=== PATIENT | male | born 1965 | race Caucasian/White ===

== ENCOUNTER 2017-03-04 09:39 | Emergency (ER) | payer OTHER ==
[~2017-03-04] VITALS: Ht 177.8 cm; Wt 93.2 kg
[~2017-03-04 09:39] MED LIST: ASPI-973 PO; LOVA10TA PO; NAPR220C11 PO
[2017-03-04 09:50] VITALS: BP 170/106; PULSE 77; RESP 18; O2SAT 100
--- NOTE | 2017-03-04 09:58 | ED.REPORT ---
HPI-General Illness Date of Service Mar 04, 2017 ED Provider: Lydia Christy MD A 51 year old male presents to the ED complaining of intermittent vomiting onset 1 month ago, vomiting usually occurring in the mornings. Today he woke up , felt dizzy and lightheaded, feeling like he was going to faint. He has not felt like he was going to faint with previous vomit episodes. After dizziness and lightheadedness onset, he ate something and then vomited, the vomit having no color. He reports epigastric chest pain that is only present when he vomits , with the pain being relieved by vomiting. Pain is not described as burning. Associated symptoms include diaphoresis, nausea, and recent unintentional weight loss. Nursing Notes Stated Complaint: SOB/CHEST PAIN Chief Complaint: Chest Pain-Non Cardiac Nature Nursing Notes Reviewed: Yes Allergies: Coded Allergies: No Known Allergies (Unverified , 03/04/17) Scheduled Aspirin (Aspirin) 81 Mg Tablet 81 MG PO DAILY Ciprofloxacin (Cipro) 500 Mg Tablet 500 MG PO BID Lovastatin (Lovastatin) 10 Mg Tablet 10 MG PO HS Metronidazole (Flagyl) 500 Mg Tablet 500 MG PO TID Oxycodone HCl/Acetaminophen (Primlev 5-300 mg Tablet) 1 Each Tablet 0.5-1 EACH PO QID Scheduled PRN Naproxen Sodium (Aleve) 220 Mg Capsule 220 MG PO Q12H PRN PRN For Pain Ondansetron (Zofran) 4 Mg Tablet 4 MG PO Q4H PRN PRN For Nausea General Time Seen by MD: 09:54 Chief Complaint Vomiting Hx Obtained From: Patient, EMS Arrived By: Ambulance Onset Occurred: More than a week ago... (1 month ago) Symptom Duration: Intermittent Severity: Current: Moderate Severity: Maximum: Moderate Recent Healthcare: No recent doctor visit Similar Sx Previous: No Past Medical History Past Medical History Notes: Dr. Barry. Past Medical History no prior cardiac issues no pancreatic issues Baby Aspirin Reports: Hyperlipidemia, Denies: Hypertension Past Surgical History knee surgery Smoking History Never Smoker (no cigarettes) Social History Alcohol Use: 1-3 per day (daily) Drug Use: THC Ambulatory Status Independent Review of Systems Feelings of faintness. Full Review of Systems Constitutional: Reports: Recent wt loss Cardiovascular: Reports: Chest pain (epigastric pain, but no heart pain) GI: Reports: Nausea, Vomiting, Denies: Bloody/tarry stool, Diarrhea, Hematemesis Male: Denies Incontinence Skin: Reports Diaphoresis Neurologic: Reports: Dizziness, Lightheaded Complete sys rev & neg: except as marked. Physical Exam Vital Signs Vital Signs Date Time Temp Pulse Resp B/P Pulse Ox O2 Delivery O2 Flow Rate FiO2 03/04/17 14:49 36.8 79 18 134/68 98 Room Air 03/04/17 11:52 72 21 172/93 100 Room Air 03/04/17 10:43 75 20 165/108 100 Room Air 03/04/17 09:50 37.1 77 18 170/106 100 Room Air Initial VS: Reviewed General/Constitutional: Awake, Alert Patient is diaphoretic. Head / Eyes: Atraumatic, Normocephalic, PERRL, EOMI ENT: Atraumatic, Mucous membranes moist Respiratory / Chest: Atraumatic, Breath sounds NL, Breath sounds = bilat, No respiratory distress, No rales, No rhonchi, No wheezing Cardiovascular: Heart rate NL, Heart sounds NL brief runs of bigeminy. Abdomen: No guarding, No rebound Tenderness/Guarding/Rebound: Positive: Tender LLQ... (Worsening pain in LUQ that is radiating down to LLQ), Tender LUQ... (worsening pain in LUQ that is radiating down to LLQ), Tender diffuse (Diffuse abdominal pain) Skin: Atraumatic, Color NL, Warm, Dry Neurologic: Oriented X3, Speech NL Interpretation & Diagnostics Lab Results Interpretation Result Diagram: 03/04/17 1000 03/04/17 1000 Test 03/04/17 10:00 White Blood Count 8.8th/mm3 (3.8-10.1) Red Blood Count 4.99mil/mm3 (4.40-5.80) Hemoglobin 15.8g/dL (13.8-17.2) Hematocrit 46.1% (41.0-50.0) Mean Corpuscular Volume 92.4fL (81-100) Mean Corpuscular Hemoglobin 31.7pg (27.0-35.0) Mean Corpuscular Hemoglobin Concent 34.3% (32.0-37.0) Red Cell Distribution Width 12.5% (12.3-15.4) Platelet Count 319bil/L (150-400) Neutrophils (%) (Auto) 64.9% (40-74) Lymphocytes (%) (Auto) 21.6% (14-46) Monocytes (%) (Auto) 9.1% (4-12) Eosinophils (%) (Auto) 3.6% (0-5) Basophils (%) (Auto) 0.7% (0-3) Sodium Level 136mEq/L (134-144) Potassium Level 4.0mEq/L (3.5-5.2) Chloride Level 101mEq/L (97-108) Carbon Dioxide Level 17mmol/L (18-29) Blood Urea Nitrogen 18mg/dL (6-24) Creatinine 0.62mg/dL (0.76-1.27) Estimat Glomerular Filtration Rate 144mL/min (>59) Glucose Level 125mg/dL (60-99) Calcium Level 9.8mg/dL (8.5-10.1) Magnesium Level 1.9mg/dL (1.6-2.6) Total Bilirubin 0.5mg/dL (0.0-1.2) Aspartate Amino Transf (AST/SGOT) 30U/L (0-50) Alanine Aminotransferase (ALT/SGPT) 33U/L (0-44) Alkaline Phosphatase 19U/L (25-150) Troponin T 0.010ug/L (0.0-0.011) Total Protein 7.5g/dL (6.4-8.4) Albumin 4.6g/dL (3.4-5.0) Lipase 22U/L (13-60) Hold Bedoya Top Tube Received (Received) ECG Interpretation ECG Interpretation: Rate is 68. Sinus rhythm. Ventricular premature complex. No ischemia. Time: 10:53 Interpreted by: ED physician X-Ray Chest Interpretation Chest Xray Interpretation: IMPRESSION: Probable right infrahilar scarring/atelectasis. No convincing pneumonia. No overt heart failure. Dictated by: Momo Awad M.D. on 03/04/2017 at 9:17 Approved by: Momo Awad M.D. on 03/04/2017 at 9:17 Interpretation / Wet Read by: Interpret - Radiologist CT Abd / Pelvis Interpretation IMPRESSION: 1. Diverticulosis. There is mild concentric thickening of colon of the descending and sigmoid colon, suggesting mild colitis. Differential diagnoses include diverticulitis, colitis, and inflammatory bowel disease. 2. Small hiatal hernia Dictated by: Lobito Carrasco M.D. on 03/04/2017 at 12:42 Approved by: Lobito Carrasco M.D. on 03/04/2017 at 13:00 Interpretation / Wet Read by: Interpret - Radiologist Re-Eval/Medical Decision Med Decision/Clinical Course Presents with abdominal pain and vomiting this been present for a month consistently every morning. He is having brief runs of a Belkis and with these episodes of bigeminy is more diaphoretic with an exacerbation of his abdominal pain. Unclear if it is the abdominal pain causing the cardiac dysrhythmia or vice versa. Exam is relatively unremarkable with the exception of a mildly inflamed colon. Most consistent with diverticulitis as an acute symptom causing his pain. Once pain and nausea were controlled his telemetry readings have remained in sinus rhythm throughout the remainder of his emergency room stay No evidence of sepsis. We will treat him for acute diverticulitis. refer back to PCP for additional workup of the morning nausea for the last month Source of Hx: Old records Time of Eval: 10:02 Re-Evaluation/Progress Note: Checked patient who is not hurting right now. Time of Eval: 14:11 Patient Status: Condition improved Re-Evaluation/Progress Note: Rechecked patient who is feeling much better. Explained test results, diagnosis, and plan for discharge. Patient understands and agrees with the plan. All questions addressed. Counseled Regarding: Diagnosis, Lab results, Need for follow-up, When/why to return to ED Discharge & Departure Primary Impression: Diverticulitis Additional Impression: Recurrent vomiting Disposition: Home Discharge Condition All VS Reviewed: Yes Condition: Improved Patient Instructions: Diverticulitis (ED) Your lab work and CT scan do not suggest severe disease at this point. CT scan does show some inflammation along your colon most, consistent with a developing diverticulitis. For that reason, I am going to have you start Flagyl 500 mg 3 times a day for the next 7 days, and Cipro 500 mg twice a day for the next 7 days. You can use half to one Percocet as needed for pain You can use 4 mg of Zofran every 8 hours as needed for nausea I am not sure that diverticulitis is a full explanation for the vomiting that you have been having daily for the last month. Please schedule an appointment with Dr. Barry next week to follow up on all of these issues and see if additional workup is necessary Thank you for your patients with me in the department today. It was nice to making. I hope you feel better soon. Referrals: Basilio Barry MD (PCP) Sergioibrogelio Attestation Portions of this note were transcribed by Jenaro Collins. I, Dr. Christy personally performed the history, physical exam and medical decision-making; I reviewed and confirmed the accuracy of the information in the transcribed note. Signed by: Kevin Collins, 03/04/2017, 1605. copies to: Basilio Barry MD, Shawna L MD Mar 04, 2017 09:58 Jenaro Collins Mar 04, 2017 10:03
[2017-03-04] MEDS ORDERED: Ondansetron 2 mg/mL 2 mL Inj ONE (10:04)
[2017-03-04] MEDS ORDERED: Ondansetron 2 mg/mL 2 mL Inj IVPUSH ONE (10:10)
[2017-03-04 10:19] LABS: BASOPHILS % (AUTO) 0.7 % (0-3); EOSINOPHILS % (AUTO) 3.6 % (0-5); MONOCYTES % (AUTO) 9.1 % (4-12); Mean Corpuscular Hemoglobin 31.7 pg (27.0-35.0); Mean Corpuscular Volume 92.4 fL (81-100); NEUTROPHILS % (AUTO) 64.9 % (40-74); Platelet Count 319 bil/L (150-400)
--- NOTE | 2017-03-04 10:19 | DRSVH ---
PROCEDURE: X-RAY CHEST ONE VIEW, PORTABLE ([id number]) INDICATIONS: CP TECHNIQUE: One view of the chest was acquired. COMPARISON: None. FINDINGS: Surgical changes and devices: None. Lungs and pleura: Slight increased attenuation is identified within the right infrahilar region, prob ably representing normal vascular structures or mild atelectasis. No convincing areas of consolidati on are present. No pleural effusion or definite pneumothorax is evident. Mediastinum: Mediastinal contours appear normal. Heart size is normal. Bones and chest wall: No suspicious bony lesions. Overlying soft tissues appear unremarkable. IMPRESSION: Probable right infrahilar scarring/atelectasis. No convincing pneumonia. No overt heart failure. Dictated by: Momo Awad M.D. on 03/04/2017 at 9:17 Approved by: Momo Awad M.D. on 03/04/2017 at 9:17
[2017-03-04 10:43] VITALS: BP 165/108; PULSE 75; RESP 20; O2SAT 100
[2017-03-04 10:58] LABS: TROPONIN T 0.01 ug/L (0.0-0.011)
[2017-03-04] MEDS ORDERED: 0.9% Sodium Chloride 1,000 ML IV ONE (11:07)
[2017-03-04 11:09] LABS: Magnesium 1.9 mg/dL (1.6-2.6)
[2017-03-04] MEDS: HYDROmorphone 0.5 mg/0.5 mL iSecure Syringe IVPUSH PRN ×3 (11:21→13:45)
[2017-03-04] MEDS: Ondansetron 2 mg/mL 2 mL Inj IVPUSH PRN ×2 (11:21→13:45)
[2017-03-04 11:52] VITALS: BP 172/93; PULSE 72; RESP 21; O2SAT 100
--- NOTE | 2017-03-04 13:01 | DRSVH ---
PROCEDURE: CT ABDOMEN AND PELVIS WITH CONTRAST ([id number]) INDICATIONS: abdominal pain, worse Left upper quadrant TECHNIQUE: After the administration of intravenous contrast, 5 mm thick sections acquired from the diaphragm to the symphysis. 5 mm coronal and sagittal reformats were acquired. For radiation dose reduction, the following was used: automated exposure control, adjustment of mA and/or kV according to patient siz e. COMPARISON: None. FINDINGS: Image quality: Excellent. ABDOMEN: Lung bases: Lung bases are clear. Heart size is normal. There is a small hiatal hernia. Solid organs: Mild hepatic fatty infiltration. Liver and spleen are normal in size and enhancement. Gallbladder is normal. Biliary system is non dilated. Pancreas enhances normally. No adrenal nodu les. Kidneys demonstrate normal size and enhancement, without hydronephrosis. Peritoneum and bowel: Bowel loops demonstrate normal wall thickness and caliber. There are scattere d colonic diverticula. There is mild concentric colonic wall thickening of the sigmoid colon. Normal appendix. No free fluid or air. Nodes and vessels: No retroperitoneal or mesenteric adenopathy by size criteria. Aorta and inferior vena cava are normal in size. Miscellaneous: No ventral hernias. PELVIS: Genitourinary: Bladder wall thickness is normal. Miscellaneous: No inguinal hernias or adenopathy. Bones: No suspicious bony lesions. No vertebral body compression fractures. IMPRESSION: 1. Diverticulosis. There is mild concentric thickening of colon of the descending and sigmoid colon, suggesting mild colitis. Differential diagnoses include diverticulitis, colitis, and inflammatory bow el disease. 2. Small hiatal hernia Dictated by: Lobito Carrasco M.D. on 03/04/2017 at 12:42 Approved by: Lobito Carrasco M.D. on 03/04/2017 at 13:00
[2017-03-04] MEDS ORDERED: [UNRECOGNIZED DRUG - CODE] PO (14:25)
[2017-03-04] MEDS ORDERED: ONDA4TAB6 PO (14:25)
[2017-03-04] MEDS ORDERED: METR500T PO (14:25)
[2017-03-04] MEDS ORDERED: CIPR-231 PO (14:25)
[2017-03-04 14:49] VITALS: BP 134/68; PULSE 79; RESP 18; O2SAT 98
== END 2017-03-04 14:50 | disposition home or self-care (01) ==
LOC: SED 09:39
DX: K57.92 Diverticulitis of intestine, part unspecified, without perforation or abscess without bleeding (principal); R11.10 Vomiting, unspecified; E78.5 Hyperlipidemia, unspecified; Z79.82 Long term (current) use of aspirin
CPT/HCPCS: 36415; 71010; 74177; 80053; 83690; 83735; 84484; 85025; 93005; 96361; 96374; 96375; 96376; 99285; J1170; J2405; J7030; Q9967

== ENCOUNTER 2017-05-19 12:05 | Day surgery (SDC) | payer OTHER ==
[~2017-05-19] VITALS: Ht 180.3 cm; Wt 90.7 kg
[~2017-05-19 12:05] MED LIST changes: +0.9% Sodium Chloride 1,000 ML IV PRN; +CIPR-231 PO; +METR500T PO; +ONDA4TAB6 PO; +Sodium Chloride LOK Flush 10 mL Syringe IV PRN; +[UNRECOGNIZED DRUG - CODE] PO; +fentaNYL-PF 50 mCg/mL 2 mL Inj IVPUSH PRN
[2017-05-19] MEDS ORDERED: Propofol 10,000 mCg/mL 20 mL Inj ONE (12:06)
[2017-05-19 12:40] VITALS: BP 123/84; PULSE 70; RESP 16; O2SAT 97
[2017-05-19 13:59] VITALS: BP 120/70; PULSE 65; RESP 16; O2SAT 97
[2017-05-19 14:08] VITALS: BP 133/74; PULSE 72; O2SAT 98
[2017-05-19 14:18] VITALS: BP 122/79; PULSE 63; O2SAT 98
[2017-05-19] MEDS ORDERED: Lactated Ringer's 1,000 ML IV SCH (14:21)
[2017-05-19] MEDS ORDERED: Ondansetron 2 mg/mL 2 mL Inj IVPUSH PRN (14:25)
[2017-05-19] MEDS ORDERED: MetoCLOpramide 5 mg/mL 2 mL Inj IVPUSH PRN (14:25)
--- NOTE | 2017-05-19 14:25 | PCM.HPANE ---
Patient Data Date of Service: May 19, 2017 (3930) Surgeon Admitting Provider: Attending Provider:Mario Veloz MD Primary Care Physician:Basilio Barry MD Other Provider: Reason for Visit Altered Bowel Habits/Nausea & Vomiting R19.4-R11.2 Ht/WT & BMI Height (Feet): 5 Height (Inches): 11 Weight (Kilograms): 90.72 Body Mass Index 28.00 Allergies Coded Allergies: No Known Allergies (Unverified , 03/04/17) Past Anesthesia History Anesthesia History: Denies:: Abnormal Airway, Anesthesia Reactions, Difficult Intubation, Fam Anesthesia Reaction, Fam Malignant Hypertherm, Malignant Hyperthermia Diabetes History Hx Diabetes?: No MRSA MRSA: No Medications Blood Thinner: Aspirin Active Scripts Ondansetron (Zofran)4 Mg Tablet4 Mg PO Q4H PRN For Nausea #14 TABLET Prov:Lydia Christy MD 03/04/17 Oxycodone HCl/Acetaminophen (Primlev 5-300 mg Tablet)1 Each Tablet0.5-1 Each PO QID acute pain #14 TABLET Prov:Lydia Christy MD 03/04/17 Reported Medications Lovastatin 10 Mg [id number] Mg PO HS #30 TABLET Ref 0 08/24/16 Aspirin 81 Mg [id number] Mg PO DAILY Ref 0 08/24/16 Naproxen Sodium (Aleve)220 Mg [id number] Mg PO Q12H PRN For Pain 08/24/16 Discontinued Scripts Ciprofloxacin (Cipro)500 Mg [id number] Mg PO BID #14 TABLET Ref 0 Prov:Lydia Christy MD 03/04/17 Metronidazole (Flagyl)500 Mg [id number] Mg PO TID #21 TABLET Prov:Lydia Christy MD 03/04/17 History History of ENT Problems?: No HEENT History: Denies:: Abnormal Airway Cataracts Difficult Intubation Dysphagia Glaucoma Hearing Problem Sinus Problem TMJ Denture Type: None Teeth Condition: Within Normal Limits Hx of Heart Problems?: No Cardiovascular History: Positive for:: Hypertension Denies:: AICD Abdominal Aortic Aneurism Atrial Fibrillation Cardiac Surgery Chest Pain Congestive Heart Failure Coronary Artery Disease Edema Heart Murmur Irregular Heartbeat Pacemaker Peripheral Vascular Rheumatic Fever Thrombophlebitis Valvular Heart Disease Hx of Respiratory Problem?: No Respiratory History: Denies:: Asthma COPD Chest Surgery Cough Dyspnea Emphysema Hemoptysis Oxygen Administration Pneumonia Pulmonary Embolism Tuberculosis Use of C-PAP Machine Use of Inhalers / NEBS Hx Neurologic Problems?: No Neurological History: Denies:: Alzheimer's Disease CVA Dementia Dizziness Headaches Multiple Sclerosis Parkinson's Disease Peripheral Neuropathy Seizures TIA Hx of GI Problems?: Yes Gastrointestinal History: Denies:: Cirrhosis Diverticulitis Gall Bladder Disease Gastroesphageal Reflux Gastrointestinal Bleeding Heartburn Hepatitis Hiatal Hernia Liver Disease Rectal Bleeding Hx of Problems?: No Genitourinary History: Denies:: HX of Hemodialysis Kidney Stones Urinary Tract Infection HX of Peritoneal Dialysis: No Male Hx: Denies:: Prostate Problems Scrotal Mass Testicular Surgery Skin History: Denies:: History Skin Disorders? Pressure Ulcers Hx Musculoskeletal Problems?: Yes Musculoskeletal History: Denies:: Back Injury Degenerative Joint Fibromyalgia Joint Replacement Musculoskeletal Trauma Myasthenia Gravis Osteoarthritis Rheumatoid Arthritis Systemic Lupus Hx of Psycho/Social Problems?: No Psycho Social History: Denies:: Anxiety Bipolar Disorder Hx Depression Suicide Attempt Hx Surgeries?: Yes (NOSE, KNEE) Hx Any Other Health Problems?: No Other History: Denies:: Cancer Endocrine Disease Hospitalization Thyroid Disease History Blood Transfusions: Denies:: Accept Blood Products? Blood Transfuse Reaction Blood Transfusions Hx Diabetes: No Hx Alcohol Use: Yes (DAILY COUPLE OF PINTS)Hx Substance Use: Yes (marijuana) Smoking Status: Never Smoker Have You Smoked inLast 12 mo: No Stop/Bang Treated for Sleep Apnea?: No Do You Have a CPAP Machine?: No S-Snoring: Do You Snore Loudly: No T-Tired: feel tired, fatigued: No O-Obsered: Observed not breath: No P-Blood Pressure: treated: No B- Body Mass Index > 35 kg/m2: No A- Age over 50: Yes N- Neck Large Circumference: No G- Gender Male: No DAVID Total Score: 1 Risk Assessment Category Category 1A: Patient has history of documented sleep apnea, and HAS NOT received any narcotic, sedative or anesthesia administration during this stay. Category 1B: Patient has history of documented sleep apnea, and HAS received any narcotic , sedative or anesthesia administration during this stay Category 2: Patient has SUSPECTED Obstructive Sleep Apnea, and HAS received any narcotic , sedative or anesthesia administration during this stay. Category 3: Patient has SUSPECTED Obstructive Sleep Apnea and HAS NOT received narcotic, sedative or anesthesia administration during this stay. Category 4: Outpatient in Procedural Areas with known sleep apnea or who screen positive for High Risk via the STOP/BANG questionnaire. Exam Exam Vital Signs Vital Signs Date Time Temp Pulse Resp B/P Pulse Ox O2 Delivery O2 Flow Rate FiO2 05/19/17 13:59 65 16 120/70 97 Room Air 05/19/17 12:40 70 16 123/84 97 Room Air General Appearance: Alert, Oriented X3, Cooperative, No Acute Distress HEENT/AIRWAY: MP 2, Neck Movement (FROM), Mouth Opening (3 FBMO) Lungs: Clear to Auscultation, Normal Air Movement Heart: Exam Unremarkable, Regular Rate/Rhythm, No Murmurs/Rubs/Gallops Plan Impression Patient chart reviewed, patient interviewed and anesthestic plan with risks, benefits, and alternatives discussed, and informed consent obtained. NPO per Anesth. Guidelines: Yes ASA Physical Status: ASA2 Mod Systemic Disease Anesthetic Plan: GA Bene/Risks/Altern/Consents: Yes HP Complete Prior to Induction: Yes Saeed Hastings MD May 19, 2017 14:08
--- NOTE | 2017-05-19 14:26 | PCM.ANEP1 ---
Post Anesthesia PACU Phase 1 Assessment Vital Signs Vital Signs Date Time Temp Pulse Resp B/P Pulse Ox O2 Delivery O2 Flow Rate FiO2 05/19/17 13:59 65 16 120/70 97 Room Air 05/19/17 12:40 70 16 123/84 97 Room Air Anesthetic Administered: GA Level of Alertness: Awake, talking MUKHERJEE's with Equal Strength: Yes Pain: No Nausea or Vomiting: No CV Function & Hydration Stable: Yes Airway Device: N/A Oxygen Delivery: Room Air Lungs: Clear to Auscultation, Normal Air Movement Dermatome Level: Full Sensation PACU Phase 2 Assessment Complications: No Follow up Care: N/A Patient Instructions Provided: N/A Saeed Hastings MD May 19, 2017 14:26
--- NOTE | 2017-05-19 14:32 | ENDO ---
[address] [address] ENDOSCOPY PROCEDURE PATIENT: IRAIS HECTOR : 1965 MR#: [id number] ADMIT: 05/19/2017 JOB ID: [id number] DATE: 05/19/2017 PRIMARY PROVIDER: Basilio Barry M.D. PROCEDURE: Esophagogastroduodenoscopy with biopsies and colonoscopy. INDICATIONS: A 51-year-old male with some intermittent nausea, vomiting and abnormal imaging demonstrating some left colon thickening. He had transient diarrhea. At baseline since discontinuation of NSAIDs, he is markedly improved without any recurrence of nausea, vomiting nor any alteration in his stool pattern. However, EGD is pursued to exclude peptic ulcer disease or any other significant pathology along with colon cancer screening. EQUIPMENT: PCFH 180 AL and GIF H 180 J. SEDATION: Initially we applied conscious sedation with 6 mg Versed and 125 mcg fentanyl. The patient was completely intolerant of any attempt at gaining access to the posterior oropharynx. Dr. Saeed Hastings performed rescue propofol based monitored anesthesia in order for us to complete the case. COMPLICATIONS: None identified. BOWEL PREPARATION: Fair, adequate exam. PROCEDURAL INFORMATION: After the risks and benefits were explained, written and verbal informed consent was obtained. The patient was brought into the endoscopy suite and placed into the left lateral decubitus position. Sedation was achieved as above. The scope introduced slightly into the esophagus following propofol-induced anesthesia. We advanced to the second portion of the duodenum. The scope was slowly withdrawn to carefully examine the mucosa for any defects or lesions. Retroflexed views were accomplished in the stomach. The stomach was decompressed. The scope removed from the patient who tolerated the procedure well. The patient was then turned around. A digital rectal examination accomplished. Moderate internal nonthrombosed nonbleeding hemorrhoids were noted. No other pathology. The scope was introduced into the rectum and advanced under direct visualization to the level of the cecum, as identified by the appendiceal orifice and ileocecal valve. The scope was slowly withdrawn to carefully examine the mucosa for any defects or lesions. Multiple direct views were made through the dentate line for exclusion of pathology. The colon was decompressed. The scope removed from the patient who tolerated the procedure well. FINDINGS: 1. Duodenum: No pathology identified from the bulb through to the second portion. 2. Stomach: No outlet obstructions. No ulcers apparent. No mass lesions. Minimal nonspecific diffuse gastropathy identified throughout. Random biopsy was, therefore, acquired for exclusion of Helicobacter or other pathology. Otherwise, retroflexed views of the LES were unremarkable. 3. Esophagus: The squamocolumnar junction correlates with the top of the gastric folds. The GE junction was at approximately 43 cm from the incisors. No acute erosive changes. No strictures. No mass lesions. The remainder of the esophagus appeared unremarkable. 4. Colon: No significant polyps, mass lesions or inflammatory features identified throughout. There was absolutely no sign of any inflammation or thickening in the colon to correlate with the CAT scan. ENDOSCOPIC DIAGNOSES: 1. Minimal gastropathy. 2. Otherwise visually unremarkable esophagogastroduodenoscopy. 3. Moderately engorged internal hemorrhoids. 4. Otherwise visually unremarkable colonoscopy. RECOMMENDATIONS: 1. Await histopathology. 2. If Helicobacter is found, it will need to be eradicated with standard triple therapy. 3. Surveillance esophagogastroduodenoscopy is not anticipated. 4. Repeat colonoscopy in 10 years' time, sooner should symptoms warrant an earlier examination. 5. The patient is encouraged to minimize nonsteroidal anti-inflammatory use in the future (i.e., these can be used on a p.r.n. basis, but not taken daily in a scheduled fashion ideally).
== END 2017-05-19 23:59 | disposition home or self-care (01) ==
LOC: END 12:05
PROVIDERS: ATTEND Internal Medicine Gastroenterology
DX: K64.8 Other hemorrhoids (principal); K29.50 Unspecified chronic gastritis without bleeding; R19.4 Change in bowel habit; R11.2 Nausea with vomiting, unspecified; I10 Essential (primary) hypertension; F12.90 Cannabis use, unspecified, uncomplicated; Z79.1 Long term (current) use of non-steroidal anti-inflammatories (NSAID); Z79.82 Long term (current) use of aspirin
CPT/HCPCS: 43239; 45378; J2250; J3010; J7030